=== PATIENT | male | born 1995 | race African-American/Black ===

== ENCOUNTER 2018-04-22 06:55 | Emergency (ER) | payer SELFPAY ==
[~2018-04-22 06:55] MED LIST: IBUP600 PO
[2018-04-22 07:11] VITALS: BP 140/77; PULSE 95; RESP 17; TEMP 98.1; O2SAT 97
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
[2018-04-22] MEDS ORDERED: IBUP1TAB7 PO (08:42)
[2018-04-22] MEDS ORDERED: IBUPROFEN 800 MG TAB PO ONE (08:45)
== END 2018-04-22 09:08 | disposition home or self-care (01) ==
LOC: NEPD 06:55
DX: S09.90XA Unspecified injury of head, initial encounter (principal); S40.212A Abrasion of left shoulder, initial encounter; Y00.XXXA Assault by blunt object, initial encounter
CPT/HCPCS: 70450; 71045; 73030; 99284